=== PATIENT | male | born 1965 | race Caucasian/White ===

== ENCOUNTER → 2018-10-19 08:16 | Outpatient (CLI) | payer BC, SELFPAY ==
[2018-10-19 11:20] LABS: Anion Gap 7 (5-15); BUN 21 mg/dL (7-18); BUN/Creat Ratio 22.4 RATIO (10-20); Calcium,Total 8.4 mg/dL (8.5-10.1); Chloride 109 mmol/L (98-107); Cholesterol 253 mg/dL (200); Creatinine, Serum 0.94 mg/dL (0.70-1.30); EST Glomerular Filtration Rate 90 mL/min (>60); Est Glom Filt Rate - Afr Amer 109 mL/min (>60); Glucose 91 mg/dL (74-106); High Density Lipoprotein 67 mg/dL; Potassium 4.2 mmol/L (3.5-5.1); Sodium Level 143 mmol/L (136-145); Triglycerides 139 mg/dL; Very Low Density Lipoprotein 28 mg/dL (5-40)
== END ==
PROVIDERS: Family Provider Family Medicine; PCP Family Medicine; Referring Provider Family Medicine; Visit Provider Family Medicine
DX: Z00.00 Encounter for general adult medical examination without abnormal findings (principal)
CPT/HCPCS: 36415; 80048; 80061

== ENCOUNTER → 2021-10-10 | Outpatient (CLI) | payer OTHER, SELFPAY ==
[2021-10-10 15:30] LABS: BUN 21 mg/dL (7-18); Creatinine, Serum 0.97 mg/dL (0.70-1.30); Glucose 94 mg/dL (74-106)
[2021-10-10 15:31] LABS: Anion Gap 4 (5-15); BUN/Creat Ratio 21.6 RATIO (10-20); Calcium,Total 8.7 mg/dL (8.5-10.1); Chloride 107 mmol/L (98-107); Cholesterol 236 mg/dL (200); EST Glomerular Filtration Rate 85 mL/min (>60); Est Glom Filt Rate - Afr Amer 103 mL/min (>60); High Density Lipoprotein 53 mg/dL; Potassium 4.1 mmol/L (3.5-5.1); Sodium Level 139 mmol/L (136-145); Triglycerides 263 mg/dL; Very Low Density Lipoprotein 53 mg/dL (5-40)
[2021-10-10 15:32] LABS: Vitamin D,25 Hydroxy 29.4 ng/mL
== END | disposition home or self-care (01) ==
LOC: MFPLAB 12:00
PROVIDERS: PCP Family Medicine; Referring Provider Family Medicine; Visit Provider Family Medicine
DX: Z00.00 Encounter for general adult medical examination without abnormal findings (principal)
CPT/HCPCS: 36415; 80048; 80061; 82306

== ENCOUNTER → 2022-05-30 | Outpatient (CLI) | payer OTHER, SELFPAY ==
[2022-05-30 10:15] LABS: AST(SGOT) 22 U/L (15-37); Alanine Aminotransfer ALT/SGPT 33 U/L (16-61); Albumin, Serum 3.3 g/dL (3.2-5.0); Alkaline Phosphatase 72 U/L (45-117); Anion Gap 7 (5-15); BUN 17 mg/dL (7-18); BUN/Creat Ratio 17.3 RATIO (10-20); Calcium,Total 8.6 mg/dL (8.5-10.1); Chloride 108 mmol/L (98-107); Cholesterol 189 mg/dL (200); Creatinine, Serum 0.98 mg/dL (0.70-1.30); EST Glomerular Filtration Rate 84 mL/min (>60); Est Glom Filt Rate - Afr Amer 102 mL/min (>60); Globulin 3.2 g/dL (2.2-4.2); Glucose 95 mg/dL (74-106); High Density Lipoprotein 47 mg/dL; Potassium 4.3 mmol/L (3.5-5.1); Protein, Total 6.5 g/dL (6.4-8.2); Sodium Level 142 mmol/L (136-145); Triglycerides 193 mg/dL; Very Low Density Lipoprotein 39 mg/dL (5-40)
== END | disposition home or self-care (01) ==
LOC: MFPLAB 08:03
PROVIDERS: PCP Family Medicine; Referring Provider Family Medicine; Visit Provider Family Medicine
DX: E78.5 Hyperlipidemia, unspecified (principal)
CPT/HCPCS: 36415; 80053; 80061

== ENCOUNTER → 2022-10-17 | Outpatient (CLI) | payer OTHER, SELFPAY ==
--- NOTE | 2022-10-17 16:36 | RAD_ITS ---
STUDY: X-RAY - CERVICAL SPINE REASON FOR EXAM: Male, 57 years old. Radiculopathy, cervical region TECHNIQUE: 5 view(s) of the cervical spine were obtained. COMPARISON: None FINDINGS: Normal anterior atlantoaxial articulation. Normal odontoid process. There is straightening of the normal cervical lordosis. Normal vertebral bodies and endplates. Narrowing of the disc at C5-C6, otherwise normal disc space heights. Normal visualized intervertebral neuroforamina. The soft tissue structures are unremarkable. There is no demonstrated fracture of the cervical spine. RAD/Cerv Spine 4 or 5 Views IMPRESSION: Degenerative disc disease localized to C5-C6, otherwise negative. Electronically Signed: Marcelo Serra MD at 22:02 EDT ,
== END | disposition home or self-care (01) ==
LOC: MTRAD 16:35
PROVIDERS: PCP Family Medicine; Referring Provider Family Medicine; Visit Provider Family Medicine
DX: M54.12 Radiculopathy, cervical region (principal)
CPT/HCPCS: 72050

== ENCOUNTER → 2022-11-10 | Outpatient (CLI) | payer OTHER, SELFPAY ==
--- NOTE | 2022-11-10 09:00 | ECHOCS_ITS ---
Reason For Study: VSD Procedure This was a 2D Doppler, Color Flow transthoracic echocardiogram. The study was technically difficult. Contrast injection was performed. Exam performed in department. Left Ventricle Normal left ventricle. Small supracristal VSD present. Left ventricular systolic function is normal. The estimated ejection fraction is 60 %. No regional wall motion abnormalities noted. Right Ventricle Normal right ventricle. Normal systolic function. Atria Normal left atrium. Normal right atrium. Mitral Valve Normal mitral valve. Tricuspid Valve Normal tricuspid valve. Mild (1+) tricuspid valve insufficiency. Pulmonary artery systolic pressure is 23 mmHg. Aortic Valve Trisinus/trileaflet aortic valve. Pulmonic Valve The pulmonic valve is not well visualized. Great Vessels Mildly dilated aortic root. The pulmonary artery is normal size. Normal inferior vena cava. Pericardium/Pleural No pericardial effusion. Medication 20 gauge I.V. with prn adaptor inserted into right arm. Diluted definity 1.5ml given slow IV push to enhance endocardial definition. MMode/2D Measurements & Calculations LVIDd: 5.1 cm IVSd: 0.90 cm Ao root diam: 4.1 cm LVIDs: 3.3 cm LVPWd: 1.0 cm LA dimension: 4.0 cm RVDd: 4.8 cm FS: 36.1 % LAV(MOD-bp): 73.4 ml LVAd ap4: 36.4 cm2 SV(MOD-sp4): 84.2 ml LAV(MOD-bp) Indexed: 33.8 ml/m2 LVLd ap4: 8.7 cm LAV(MOD-sp2): 85.1 ml EDV(MOD-sp4): 127.7 ml LAV(MOD-sp4): 63.2 ml EDV(sp4-el): 128.8 ml LVAs ap4: 18.4 cm2 LVLs ap4: 6.8 cm ESV(MOD-sp4): 43.4 ml ESV(sp4-el): 42.2 ml EF(MOD-sp4): 66.0 % EF(sp4-el): 67.2 % SV(sp4-el): 86.6 ml LA A4 area: 20.6 cm2 RA A4 area: 16.6 cm2 Time Measurements MV dec time: 0.17 sec Doppler Measurements & Calculations MV E max noe: 62.7 cm/sec Lat Peak E' Noe: 14.0 cm/sec Med Peak E' One: 8.2 cm/sec MV A max noe: 54.7 cm/sec E/E' lat: 4.5 E/E' med: 7.6 MV E/A: 1.1 MV V2 max: 75.5 cm/sec MV P1/2t max noe: 75.5 cm/sec Ao V2 max: 112.3 cm/sec MV max P.3 mmHg MV P1/2t: 67.3 msec Ao max P.0 mmHg MV V2 mean: 44.4 cm/sec Ao V2 mean: 79.8 cm/sec MV mean P.92 mmHg MV dec slope: 328.5 cm/sec2 Ao mean P.9 mmHg MV V2 VTI: 27.6 cm MVA(P1/2t): 3.3 cm2 Ao V2 VTI: 27.6 cm AV (velocity ratio): 0.82 LV V1 max: 87.9 cm/sec MR max noe: 504.0 cm/sec PA V2 max: 106.7 cm/sec LV V1 max P.1 mmHg MR max P.6 mmHg LV V1 mean P.7 mmHg LV V1 mean: 62.2 cm/sec LV V1 VTI: 22.7 cm TR max noe: 223.5 cm/sec TR max P.0 mmHg ECHO/Echo Complete W/ Contrast Interpretation Summary Normal left ventricle. Left ventricular systolic function is normal. The estimated ejection fraction is 60 %. Small supracristal VSD present Ordering Physician: Abdulaziz Martin Referring Physician: Abdulaziz Martin Performed By: Garrett Apodaca RCS
== END | disposition home or self-care (01) ==
PROVIDERS: PCP Family Medicine; Referring Provider Family Medicine; Visit Provider Family Medicine
DX: Q21.0 Ventricular septal defect (principal)
CPT/HCPCS: 93306; Q9957; A4216; C8929

== ENCOUNTER → 2023-05-22 | Outpatient (CLI) | payer OTHER, SELFPAY ==
--- OUTSIDE RECORDS SUMMARY | 2023-05-22 08:13 | XMS RPT_ITS | CCD ---
Author Name Unknown Address [address] [place] [address] Organization [facility] Care Team Providers Care Wireworker Supervisor Name Role Phone MelgozaCecilia ohngi Unavailable Unavailable Pavan Pacheco Unavailable Unavailable Josee RN, Loretta Quezada Unavailable [phone] Kasey Melgoza Unavailable Unavailable Unavailable Primary Care Provider Unavailabl e Medications Current Medications Medication Drug Class(es) Dates Sig (Normalized) Sig (Original) doxycycline hyclate 100 mg oral tablet (2 sources) Tetracycline-cla ss Drug Start: 04-25-2023 End: 05-02-2023 take 1 tablet by mouth twice daily doxycycline (VIBRA-TABS) 100 mg tablet Indications: Sinobronchitis Take 1 tablet by mouth two times a day for 7 days. 14 tablet 0 04/25/2023 05/02/2023 Active Completed/Discontinued Medications Medication Drug Class(es) Dates Sig (Normalized) Sig (Original) [id number] 200 actuat albuterol 0.09 mg/actuat metered dose inhaler (2 sources) beta2-Adrenergic Agonist Start: 04-28-2014 take 2 puff(s) by inhalation every four hours as needed albuterol HFA (PROAIR HFA) 90 mcg/actuation inhaler Indications: Bronchitis Inhale 2 Puffs as instructed every 4 hours as needed. 1 Inhaler 0 04/28/2014 Active Problems Active Problems Problem Classification Problem Date Documented Da te Episodic/Chronic Cardiac and circulatory congenital anomalies (4 sources) Ventricular septal defect; Translations: [Ventricular septal defect] Onset: 03-31-2016 03-31-2016 Chronic Other upper respiratory infections (1 source) Chronic sinusitis; Translations: [Chronic sinusitis, unspecified] 04-25-2023 Chronic Past or Other Problems Problem Classification Problem Date Documented Da te Episodic/Chronic Other lower respiratory disease (10 sources) Dyspnea; Translations: [Dyspnea on exertion] Onset: 02-26-2016 Resolved: 03-31-2016 10-03-2016 Episodic Other lower respiratory disease (2 sources) Dyspnea on exertion; Translations: [Other forms of dyspnea] Onset: 02-26-2016 Resolved: 03-31-2016 03-31-2016 Episodic Pulmonary heart disease (4 sources) Other pulmonary embolism without acute cor pulmonale; Translations: [Other pulmonary embolism without acute cor pulmonale] Onset: 02-18-2016 02-18-2016 Episodic Unclassified (4 sources) Tomography - chest abnormal; Translations: [Other nonspecific abnormal finding of lung field] Onset: 02-18-2016 02-18-2016 Episodic Results Test Name Value Interpretation Reference Range Facil it Vital Signs Date Time Vital Sign Value Performing Clinician Facility 04-25-2023 15:38-0500 Body temperature 97.59 [degF] Bacilio Davis APRN.[employer] Work Phone: [facility] 04-25-2023 15:38-0500 Body weight 112.04 kg Bacilio Davis APRN.[employer] Work Phone: [facility] 04-25-2023 15:38-0500 Diastolic blood pressure 80 mm[Hg] Bacilio Davis 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[employer] [facility] [facility] Work Phone: [facility] 04-25-2023 15:38-0500 Heart rate 80 /min Bacilio Davis APRN.[employer] Work Phone: [facility] 04-25-2023 15:38-0500 Respiratory rate 16 /min Bacilio Davis APRN.[employer] Work Phone: [facility] 04-25-2023 15:38-0500 SaO2% (BldA) [Mass fraction] 97 % Bacilio Davis 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[employer] [facility] Work Phone: [facility] 04-25-2023 15:38-0500 Systolic blood pressure 124 mm[Hg] Bacilio Davis 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[employer] Work Phone: [facility] 10-06-2016 15:33-0400 BMI (Body Mass Index) 27.22 kg/m2 [facility] Work Phone: 10-06-2016 15:33-0400 Body weight 96.16 kg [facility] Work Phone: 10-06-2016 15:33-0400 BP Diastolic 60 mm[Hg] [facility] Work Phone: 10-06-2016 15:33-0400 BP Systolic 108 mm[Hg] [facility] Work Phone: 10-06-2016 15:33-0400 Height 187.96 cm [facility] Work Phone: 10-06-2016 15:33-0400 Pulse (Heart Rate) 58 /min [facility] Work Phone: 10-06-2016 15:33-0400 Respiratory Rate 18 /min [facility] Work Phone: 10-06-2016 15:33-0400 Weight 96.16 kg [facility] Work Phone: 03-31-2016 15:58-0500 BMI (Body Mass Index) 27.22 kg/m2 [facility] Work Phone: 03-31-2016 15:58-0500 BP Diastolic 70 mm[Hg] Loretta Tripp RN [facility] Work Phone: 03-31-2016 15:58-0500 BP Systolic 120 mm[Hg] Loretta Tripp RN [facility] Work Phone: 03-31-2016 15:58-0500 BSA (Body Surface Area) 2.23 m2 Loretta Tripp RN [facility] Work Phone: 03-31-2016 15:58-0500 Pulse (Heart Rate) 64 /min [facility] Work Phone: 03-31-2016 15:58-0500 Respiratory Rate 20 /min [facility] Work Phone: 03-31-2016 15:58-0500 Weight 96.16 kg Loretta Tripp RN [facility] Work Phone: 02-26-2016 16:01-0400 Heart rate 57 /min [facility] Work Phone: 02-26-2016 14:47-0400 Height 187.96 cm Loretta Tripp RN [facility] Work Phone: Encounters Encounter Date Encounter Type Care Provider Facility Start: 04-26-2023 Telephone encounter Oscar Alexander MD Work Phone: [facility] Procedures Date Procedure Procedure Detail Performing Clinician Start: 10-06-2016 End: 10-06-2016 Documentation of current medications Kasey Melgoza Start: 03-31-2016 Lipid 1996 panel - S dora or Plasma Bacilio Davis APRN.[employer] Work Phone: Start: 03-31-2016 End: 06-02-2016 *Hepatic Function Panel Sergio Burnette MD Work Phone: Start: 03-31-2016 End: 03-31-2016 EMETERION Sergio Burnette MD Work Phone: Start: 03-31-2016 End: 03-31-2016 Follow Up Appt 6 months Sergio Burnette MD Work Phone: Start: 03-31-2016 End: 06-02-2016 Lipid panel [AGGREGATE] Sergio Burnette MD Work Phone: Start: 02-26-2016 End: 02-27-2016 *Hepatic Function Panel Sergio Burnette MD Work Phone: Start: 02-26-2016 End: 02-26-2016 DJN Sergio Burnette MD Work Phone: Start: 02-26-2016 End: 03-11-2016 Echocardiography Sergio Burnette MD Work Phone: Start: 02-26-2016 End: 02-26-2016 Electrocardiogram, complete Sergio salcido MD Work Phone: Start: 02-26-2016 End: 02-26-2016 Follow Up Appt 1 month Sergio Burnette MD Work Phone: Start: 02-26-2016 End: 02-27-2016 Lipid panel [AGGREGATE] Sergio Burnette MD Work Phone: Start: 02-26-2016 End: 03-14-2016 Stress Echocardiogram (treadmill) Sergio Burnette MD Work Phone: Plan of Treatment Date Care Activity Detail Author Start: 02-13-2026 Urine microalbumin profile DTaP,Tdap,Td Vaccine (2 - Td or Tdap) [facility] Start: 01-02-2023 Covid-19 Vaccine () Covid-19 Vaccine () [facility] Start: 01-02-2023 Influenza vaccination Influenza Vaccine (#1) [facility] Start: 07-01-2022 Prostate specific antigen measurement Prostate Cancer Screening Discussion [facility] Start: 05-04-2022 Depression Assessment Depression Assessment [facility] Start: 03-31-2021 Lipid panel Lipid Screening [facility] Start: 07-01-2017 Shingrix Vaccine (1 of 2) Shingrix Vaccine (1 of 2) [facility] Start: 05-18-2017 End: 05-18-2017 Appointment Appointment [facility] Work Phone: Start: 01-01-2017 End: 06-12-2016 *Hepatic Function Panel *Hepatic Function Panel [facility] Work Phone: Start: 01-01-2017 End: 06-12-2016 Lipid panel [AGGREGATE] *Lipid Profile CC PCP [facility] Work Phone: Start: 10-06-2016 End: 10-06-2016 Appointment Appointment [facility] Work Phone: Start: 10-06-2016 End: 10-06-2016 ESVIN MCALLISTER [facility] Work Phone: Start: 10-06-2016 End: 10-06-2016 Echocardiography Echocardiogram (complete) [facility] Work Phone: Start: 10-06-2016 End: 10-06-2016 Follow Up Appt 6 months Follow Up Appt 6 months [facility] Work Phone: Start: 03-31-2016 End: 06-02-2016 *Hepatic Function Panel *Hepatic Function Panel [facility] Work Phone: Start: 03-31-2016 End: 03-31-2016 ESVIN EMETERION [facility] Work Phone: Start: 03-31-2016 End: 03-31-2016 Follow Up Appt 6 months Follow Up Appt 6 months [facility] Work Phone: Start: 03-31-2016 End: 06-02-2016 Lipid panel [AGGREGATE] *Lipid Profile CC PCP [facility] Work Phone: Start: 02-26-2016 End: 02-27-2016 *Hepatic Function Panel *Hepatic Function Panel [facility] Work Phone: Start: 02-26-2016 End: 02-26-2016 ESVIN MCALLISTER [employer] Work Phone: Start: 02-26-2016 End: 02-26-2016 Echocardiography Echocardiogram (complete) [facility] Work Phone: Start: 02-26-2016 End: 02-26-2016 Electrocardiogram, complete EKG (In office) [facility] Work Phone: Start: 02-26-2016 End: 02-26-2016 Follow Up Appt 1 month Follow Up Appt 1 month [facility] Work Phone: Start: 02-26-2016 End: 02-27-2016 Lipid panel [AGGREGATE] *Lipid Profile CC PCP [facility] Work Phone: Start: 02-26-2016 End: 02-26-2016 Stress Echocardiogram (treadmill) Stress Echocardiogram (treadmill) [facility] Work Phone: Start: 07-01-2012 Diabetes Screening Diabetes Screening [facility] Start: 07-01-2012 Screening for malignant neoplasm of colon [facility] Start: 07-01-1985 Hepatitis C screening Hepatitis C Screening [facility] Start: 07-01-1985 HIV screening HIV Screening [facility] Start: 1965 Hepatitis B Vaccine (1 of 3 - 3-dose series) Hepatitis B Vaccine (1 of 3 - 3-dose series) [facility] Influenza virus A an d B RNA and SARS-CoV-2 (COVID-19) N gene panel - Respiratory specimen by ALYSSA with probe detection COVID & INFLUENZA A/B NAAT, ROUTINE Microbiology Routine Sinobronchitis 04/25/2023 3:54 PM EST [facility] Work Phone: Patient Education [facility] Work Phone: Payers Date Payer Category Payer Private Health Insurance [facility] [employer] CHO[employer] PLUS [id number] 2012-Present [phone] [address] [address] [place] [address] HMO [id number] 2012 Unknown [id number] Social History Date Type Detail Facility Start: 02-14-2014 Tobacco smoking stat [facility] Never smoked tobacco [facility] Start: 02-14-2014 Tobacco use and exposure Smoke less tobacco non-user [facility] Start: 04-25-2023 Alcohol intake Not Asked Sarabjit machado [facility] Start: 04-11-2020 End: 04-25-2023 History of Social function [facility] Start: 04-11-2020 End: 04-25-2023 Tobacco use panel [facility] National Score (1-10 0), lower number is lower risk Not on file [facility] Start: 1965 Sex Assigned At Not on file [facility] Note 04-26-2023 Telephone Encounter - Kimberly Soto - 04/26/2023 8:05 AM ESTTelephone Encounter - Oscar Mohamud MD - 04/26/2023 7:17 AM EST Note Date & Type Note Facility 04-26-2023 Miscellaneous Notes Formattin g of this note might be different from the original. Patient given results and verbalized understanding of instructions given. Kimberly Soto Positive for Influenza A. Negative COVID. Continue supportive care. He may use prednisone, but do not take doxycycline since it will not help with influenza symptoms. Avoid contact with others until fever free for 48 hours to reduce spread of influenza. documented in this encounter [facility] Progress note 04-25-2023 Note Date & Type Note Facility 04-25-2023 Note HNO ID: [id number] Author: Bacilio Davis APRN.[employer] Service: ? Author Type: Nurse Practitioner Type: Progress Notes Filed: 04/25/2023 3:57 PM Note Text: Subjective HPI HPI Anthony Manzanares is a 57 year old male who presents today for CC of cough, congestion, fever. This started 4 days ago. Has tried otc medication for relief. Symptoms are worsened by thing. Risk factors sick exposures at home. .Patient presents with: Cough: Fever x 4 days No past medical history on file. No past surgical history on file. ALLERGIES Patient has no known allergies. MEDICATIONS FOLIC ACID/MV,FE,OTHER MIN (CENTRUM ORAL) Take by mouth. albuterol HFA (PROAIR HFA) 90 mcg/actuation inhaler Inhale 2 Puffs as instructed every 4 hours as needed. Benzonatate (TESSALON) 200 mg capsule Take 200 mg by mouth three times daily as needed for Cough. No family history on file. Social History Tobacco Use Smoking status: Never Smokeless tobacco: Never Review of Systems Constitutional: Negative for fever. HENT: Positive for congestion and sore throat. Negative for ear pain and nosebleeds. Respiratory: Positive for cough. Negative for shortness of breath and wheezing. Cardiovascular: Negative for chest pain. Musculoskeletal: Negative for neck pain. Objective Blood pressure 124/80, pulse 80, temperature 36.4 ?C (97.6 ?F), resp. rate 16, weight 112 kg (247 lb), SpO2 97%. Physical Exam Constitutional: General: He is not in acute distress. Appearance: He is not toxic-appearing or diaphoretic. HENT: Head: Normocephalic and atraumatic. Cardiovascular: Rate and Rhythm: Normal rate and regular rhythm. Heart sounds: Normal heart sounds, S1 normal and S2 normal. Pulmonary: Effort: Pulmonary effort is normal. Breath sounds: Normal breath sounds. Lymphadenopathy: Cervical: No cervical adenopathy. Right cervical: No superficial cervical adenopathy. Left cervical: No superficial cervical adenopathy. Neurological: Mental Status: He is alert and oriented to person, place, and time. Gait: Gait is intact. ASSESSMENT/PLAN: 1. Sinobronchitis - ICD9: 473.9, 490, ICD10: J32.9, J40 No xray at time of exam Start steroid, if s/s persist/worsen fill/take atb rx - Supportive care with plenty of fluids, rest, and analgesia prn. - Follow up in 3-5 days if symptoms persist or worsen. - PREDNISONE 20 MG TABLET - BENZONATATE 100 MG CAPSULE - DOXYCYCLINE HYCLATE 100 MG TABLET Bacilio Davis APRN.CNP [facility] History of Present illness Narrative 04-25-2023 Bacilio Davis APRN.HUSSAIN - 04/25/2023 3:43 PM EST Note Date & Type Note Facility 04-25-2023 History of Presen t illness Narrative Subjective HPI HPI Anthony Manzanares is a 57 year old male who presents today for CC of cough, congestion, fever. This started 4 days ago. Has tried otc medication for relief. Symptoms are worsened by thing. Risk factors sick exposures at home. .Patient presents with: Cough: Fever x 4 days No past medical history on file. No past surgical history on file. ALLERGIES Patient has no known allergies. MEDICATIONS FOLIC ACID/MV,FE,OTHER MIN (CENTRUM ORAL) Take by mouth. albuterol HFA (PROAIR HFA) 90 mcg/actuation inhaler Inhale 2 Puffs as instructed every 4 hours as needed. Benzonatate (TESSALON) 200 mg capsule Take 200 mg by mouth three times daily as needed for Cough. No family history on file. Social History Tobacco Use Smoking status: Never Smokeless tobacco: Never Review of Systems Constitutional: Negative for fever. HENT: Positive for congestion and sore throat. Negative for ear pain and nosebleeds. Respiratory: Positive for cough. Negative for shortness of breath and wheezing. Cardiovascular: Negative for chest pain. Musculoskeletal: Negative for neck pain. Objective Blood pressure 124/80, pulse 80, temperature 36.4 C (97.6 F), resp. rate 16, weight 112 kg (247 lb), SpO2 97%. Physical Exam Constitutional: General: He is not in acute distress. Appearance: He is not toxic-appearing or diaphoretic. HENT: Head: Normocephalic and atraumatic. Cardiovascular: Rate and Rhythm: Normal rate and regular rhythm. Heart sounds: Normal heart sounds, S1 normal and S2 normal. Pulmonary: Effort: Pulmonary effort is normal. Breath sounds: Normal breath sounds. Lymphadenopathy: Cervical: No cervical adenopathy. Right cervical: No superficial cervical adenopathy. Left cervical: No superficial cervical adenopathy. Neurological: Mental Status: He is alert and oriented to person, place, and time. Gait: Gait is intact. ASSESSMENT/PLAN: 1. Sinobronchitis - ICD9: 473.9, 490, ICD10: J32.9, J40 No xray at time of exam Start steroid, if s/s persist/worsen fill/take atb rx - Supportive care with plenty of fluids, rest, and analgesia prn. - Follow up in 3-5 days if symptoms persist or worsen. - PREDNISONE 20 MG TABLET - BENZONATATE 100 MG CAPSULE - DOXYCYCLINE HYCLATE 100 MG TABLET Bacilio Davis APRN.[employer] documented in this encounter [facility] Evaluation note Note Date & Type Note Facility documented in this encounter [facility] Summary Purpose Family History No Family History Records Found Advance Directives No Advanced Directives Records Found Additional Source Comments Source Comments (unrecognize d section and content) In the event this informatio n is protected by the Federal Confidentiality of Alcohol and Drug Abuse Patient Records regulations: The Federal rules restrict any use of the information to criminally investigate or prosecute any alcohol or drug abuse patient.[facility] the event this information is protected by the Federal Confidentiality of Alcohol and Drug Abuse Patient Records regulations: The Federal rules restrict any use of the information to criminally investigate or prosecute any alcohol or drug abuse patient.[facility] Reason for Visit (unrecogniz ed section and content) Reason Comments Results Influenza A (unrecognized sect ion and content) No Status Records Found INFORMATION SOURCE (unrecogn ized section and content) FOR RECORDS PERTAINING TO PATIENTS WHO ARE OR HAVE BEEN ENROLLED IN A CHEMICAL DEPENDENCY/SUBSTANCEABUSE PROGRAM, SOME INFORMATION MAY BE OMITTED. This clinical summary was aggregated from multiple sources. Caution should be exercised in using it in the provision of clinical care. This summary normalizes information from multiple sources, and as a consequence, information in this document may materially change the coding, format and clinical context of patient data. In addition, data may be omitted in some cases. CLINICAL DECISIONS SHOULD BE BASED ON THE PRIMARY CLINICAL RECORDS. [employer] [facility]. provides no warranty or guarantee of the accuracy or completeness of information in this document.
[2023-05-22 10:47] LABS: AST(SGOT) 37 U/L (15-37); Alanine Aminotransfer ALT/SGPT 61 U/L (16-61); Albumin, Serum 3.4 g/dL (3.2-5.0); Alkaline Phosphatase 75 U/L (45-117); Anion Gap 5 (5-15); BUN 16 mg/dL (7-18); BUN/Creat Ratio 18.2 RATIO (10-20); Calcium,Total 9.2 mg/dL (8.5-10.1); Chloride 112 mmol/L (98-107); Cholesterol 229 mg/dL (200); Creatinine, Serum 0.88 mg/dL (0.70-1.30); EST Glomerular Filtration Rate 95 mL/min (>60); Est Glom Filt Rate - Afr Amer 115 mL/min (>60); Globulin 3.3 g/dL (2.2-4.2); Glucose 106 mg/dL (74-106); High Density Lipoprotein 49 mg/dL; Protein, Total 6.7 g/dL (6.4-8.2); Sodium Level 141 mmol/L (136-145); Triglycerides 197 mg/dL; Very Low Density Lipoprotein 39 mg/dL (5-40)
== END | disposition home or self-care (01) ==
LOC: MFPLAB 08:06
PROVIDERS: PCP Family Medicine; Visit Provider Family Medicine
DX: E78.5 Hyperlipidemia, unspecified (principal)
CPT/HCPCS: 36415; 80053; 80061

== ENCOUNTER → 2023-10-16 | Outpatient (CLI) | payer OTHER, SELFPAY ==
[2023-10-17 01:59] LABS: ALB/GLOB Ratio 0.9 RATIO (0.9-2.4); AST(SGOT) 25 U/L (15-37); Alanine Aminotransfer ALT/SGPT 31 U/L (16-61); Albumin, Serum 3.4 g/dL (3.2-5.0); Alkaline Phosphatase 71 U/L (45-117); Anion Gap 7 (5-15); BUN 16 mg/dL (7-18); BUN/Creat Ratio 13.9 RATIO (10-20); Calcium,Total 9.1 mg/dL (8.5-10.1); Chloride 106 mmol/L (98-107); Cholesterol 230 mg/dL (200); Creatinine, Serum 1.15 mg/dL (0.70-1.30); EST Glomerular Filtration Rate 70 mL/min (>60); Est Glom Filt Rate - Afr Amer 85 mL/min (>60); Globulin 3.6 g/dL (2.2-4.2); Glucose 106 mg/dL (74-106); High Density Lipoprotein 43 mg/dL; Potassium 4.4 mmol/L (3.5-5.1); Sodium Level 138 mmol/L (136-145); Triglycerides 189 mg/dL; Very Low Density Lipoprotein 38 mg/dL (5-40)
== END | disposition home or self-care (01) ==
LOC: MFPLAB 08:35
PROVIDERS: PCP Family Medicine; Visit Provider Family Medicine
DX: E78.5 Hyperlipidemia, unspecified (principal)
CPT/HCPCS: 36415; 80053; 80061

== ENCOUNTER → 2024-04-15 | Outpatient (CLI) | payer OTHER, SELFPAY ==
[2024-04-15 10:45] LABS: AST(SGOT) 19 U/L (15-37); Alanine Aminotransfer ALT/SGPT 30 U/L (16-61); Albumin, Serum 3.4 g/dL (3.2-5.0); Alkaline Phosphatase 68 U/L (45-117); Anion Gap 7 (5-15); BUN 13 mg/dL (7-18); BUN/Creat Ratio 12.9 RATIO (10-20); Calcium,Total 9.1 mg/dL (8.5-10.1); Chloride 109 mmol/L (98-107); Cholesterol 233 mg/dL (200); Creatinine, Serum 1.01 mg/dL (0.70-1.30); EST Glomerular Filtration Rate 81 mL/min (>60); Est Glom Filt Rate - Afr Amer 98 mL/min (>60); Globulin 3.4 g/dL (2.2-4.2); Glucose 95 mg/dL (74-106); High Density Lipoprotein 52 mg/dL; Protein, Total 6.8 g/dL (6.4-8.2); Sodium Level 141 mmol/L (136-145); Triglycerides 116 mg/dL; Very Low Density Lipoprotein 23 mg/dL (5-40)
== END | disposition home or self-care (01) ==
LOC: MFPLAB 08:26
PROVIDERS: PCP Family Medicine; Referring Provider Family Medicine; Visit Provider Family Medicine
DX: Z00.00 Encounter for general adult medical examination without abnormal findings (principal)
CPT/HCPCS: 36415; 80053; 80061; 84153; G0103